=== PATIENT | female | born 2000 | race Asian ===

== ENCOUNTER 2019-11-02 19:50 | Inpatient (IN) | payer OTHER ==
[~2019-11-02] VITALS: Ht 152.4 cm; Wt 43.2 kg
[2019-11-02] MEDS ORDERED: BUPR10TASR PO (20:29)
[2019-11-02] MEDS ORDERED: SERT-141 PO (20:29)
[2019-11-02 21:10] LABS: HEMATOCRIT 43.9 % (36.0-47.0); HEMOGLOBIN 13.9 g/dl (12.0-15.5); MEAN CORPUSCULAR HEMOGLOBIN 30.8 pg (27.0-33.0); MEAN CORPUSCULAR HGB CONC 31.7 g/dl (32.0-36.5); MEAN CORPUSCULAR VOLUME 97.1 fl (80.0-96.0); PLATELET COUNT, AUTOMATED 348 10^3/uL (150-450); RED BLOOD COUNT 4.52 10^6/uL (4.00-5.40); WHITE BLOOD COUNT 8.8 10^3/uL (4.0-10.0)
[2019-11-02 21:34] LABS: AMPHETAMINES LEVEL URINE NEGATIVE (NEGATIVE); BARBITURATES URINE NEGATIVE (NEGATIVE); BENZODIAZEPINES URINE NEGATIVE (NEGATIVE); CANNABINOIDS URINE NEGATIVE (NEGATIVE); COCAINE METABOLITE URINE NEGATIVE (NEGATIVE); METHADONE URINE NEGATIVE (NEGATIVE); OPIATES URINE NEGATIVE (NEGATIVE); PHENCYCLIDINE URINE NEGATIVE (NEGATIVE)
[2019-11-02 21:37] LABS: HCG, SERUM QUALITATIVE NEGATIVE (NEGATIVE)
[2019-11-02 21:47] LABS: ACETAMINOPHEN LEVEL < 2.0 UG/ML (10.0-30.0); ALBUMIN 4.3 GM/DL (3.2-5.2); ALT/SGPT 21 U/L (12-78); BILIRUBIN,DIRECT < 0.1 MG/DL (0.0-0.2); BILIRUBIN,TOTAL 0.2 MG/DL (0.2-1.0); BLOOD UREA NITROGEN 8 MG/DL (7-18); CALCIUM LEVEL 9.1 MG/DL (8.5-10.1); CARBON DIOXIDE LEVEL 27 MEQ/L (21-32); CHLORIDE LEVEL 108 MEQ/L (98-107); CREATININE FOR GFR 0.73 MG/DL (0.55-1.30); ETHYL ALCOHOL (ETHANOL) < 0.003 % (0.000-0.010); GLUCOSE, FASTING 102 MG/DL (70-100); POTASSIUM SERUM 4.3 MEQ/L (3.5-5.1); SALICYLATE LEVEL < 1.7 MG/DL (5.0-30.0); SODIUM LEVEL 141 MEQ/L (136-145); TOTAL PROTEIN 7.4 GM/DL (6.4-8.2)
[2019-11-02] MEDS ORDERED: SERT-138 PO (22:01)
[2019-11-02] MEDS ORDERED: TRI-TAB PO (22:22)
[2019-11-02] MEDS ORDERED: traZODone 50 MG TAB PO PRN (22:30)
[2019-11-02] MEDS ORDERED: MAALOX 30 ML SUSP *UDC PO PRN (22:30)
[2019-11-02] MEDS ORDERED: MOM 30ML SUSPENSION UDC PO PRN (22:30)
[2019-11-02] MEDS ORDERED: ACETAMINOPHEN TAB 650MG DOSE (2X325MG) PO PRN (22:30)
[2019-11-02 23:54] VITALS: BP 134/80
[2019-11-03 06:33] VITALS: BP 124/68
[2019-11-03] MEDS ORDERED: INFLUENZA QUADRIVALENT PF VACCINE 0.5ML SYRINGE (90686) IM ONE (09:00)
--- NOTE | 2019-11-03 12:29 | MHHPE ---
DATE OF ADMISSION: 11/02/2019 CURRENT MEDICATIONS: None. CHIEF COMPLAINT: Suicidal ideation. HISTORY OF PRESENT ILLNESS: This is a 18-year-old female, college student at [employer]. Patient has struggled with depression since age 8. She is having suicidal thoughts of hanging herself. Her appetite is poor. Her weight is stable. Concentration is poor. Motivation is poor. Level of energy is low. She has trouble sleeping at night. She only gets about 2-4 hours sleep at night. She feels tired during the daytime. Self-esteem is low. No history of manias. Patient also has anxiety history. She has history of social phobia. She has trouble with public speaking. She also reports chronic worry and chronic anxiety. Patient was on Zoloft and Wellbutrin for 2-3 months from her primary care physician. She found the medication helpful but discontinued these medications several months ago. Patient does have a therapist through an application called [employer]. Patient states that her family are , and in her culture the men get more positive treatment than the females. She feels that her mother treats her brother more favorably. Patient has tried to overdose three times in the past 10 years by taking pills but has never been hospitalized. PAST PSYCHIATRIC HISTORY: First episode of depression was at age 8. She did see a therapist once at that point in time but was not hospitalized. She has struggled with depression and suicidality ever since. Her school performance suffered during her second semester as a sophomore. She found it hard to get out of bed. She was then started on psychotropics with some benefit, but she discontinued them, as mentioned above. MEDICAL HISTORY: Patient healthy. ALLERGIES: Patient denies. LEGAL HISTORY: None noted. CHEMICAL DEPENDENCY: Patient denies. SOCIAL HISTORY: Patient born and raised in the [place]. She is a high school graduate. She is in her third year of college. She has one younger brother, age 17. He goes to college as well. Relationship with her parents is strained. Patient states that her father has bipolar disorder and is very isolative. She has very little contact with him. She states that her mother has history of depression and is on multiple medications and is "loopy." FAMILY PSYCHIATRIC HISTORY: As above. MENTAL STATUS EXAMINATION: Patient is alert, oriented, and cooperative. Patient is quite small. She is anxious. She appears underweight. Affect is sad. She is flat and blunted. No signs of naty. She does report recent suicidal thoughts. No signs of psychosis. Insight and judgment are fair. Patient is a potential danger to herself. Grooming and hygiene appear good. LENGTH OF STAY: 7-10 days. ASSESSMENT: Patient appears to have a significant history of depression and anxiety and can benefit form inpatient care. DIAGNOSES: 1. Major depression , moderate severity. 2. Social anxiety disorder. 3. Generalized anxiety disorder. PLAN: Admit 9.39. Restart Zoloft and Wellbutrin with trazodone at bedtime for sleep. Involve in hospital milieu. Staff to work on discharge planning and coordination of care with outpatient provider.
[2019-11-03] MEDS: buPROPion (WELLBUTRIN SR) 100 MG SR TAB PO SCH (13:20)
[2019-11-03] MEDS: SERTRALINE HCL 50 MG TAB PO SCH (13:21)
--- NOTE | 2019-11-03 14:59 | HPEPDOC ---
General Date of Admission Nov 02, 2019 at 22:19 Date of Service: Nov 03, 2019 Chief Complaint The patient is a 18-year-old female admitted with a reason for visit of Unspecified Depressive Disorder. Source: Patient Exam Limitations: No limitations Timing/Duration: Intermittent Associated Symptoms: Denies Symptoms History of Present Illness Pt is a 18 year old female admitted to the [facility] for worsening depression and increasing thoughts of suicide. Pt reported that she has attempted suicide in the past. She checked herself into hospital when she noticed her thoughts of suicide were worsening as she identifies the hospital as a safe place. Pt denied any intent to harm herself. Pt denied any new or worsening medical issues at this time. Home Medications Scheduled Bupropion Hcl (Bupropion HCl Sr) 100 Mg Tab.sr.12h, 100 MG PO BID, (Reported) Norgestimate-Ethinyl Estradiol (Tri-Sprintec Tablet) 1 Each Tablet, 1 TAB PO DAILY, (Reported) Sertraline HCl (Sertraline HCl) 100 Mg Tablet, 100 MG PO DAILY, (Reported) Allergies Coded Allergies: No Known Allergies (Unverified , 11/02/19) Past Medical History Medical History Depression Suicidal thoughts anxiety Surgical History Hernia repair x 2 childhood Family History Significant Family History: No pertinent family hx Social History * Smoker: Denies Alcohol: rarely Drugs: denies Recent Travel/Sick Contacts: Denies: Recent travel, Recent sick contacts A-FIB/[facility] A-FIB History Current/History of A-Fib/PAF?: No Current PO Anticoag Therapy: No Review of Systems Constitutional: Denies: Chills, Fever, Night Sweats Eyes: Denies: Pain, Vision change ENT: Denies: Head Aches, Ear Pain, Dysphagia Skin: Denies: Rash, Lesions, Breakdown Pulmonary: Denies: Dyspnea, Cough Cardiovascular: Denies: Chest Pain, Palpitations, Orthopnea, Paroxysmal Noc. Dyspnea, Lt Headedness Gastrointestinal: Denies: Nausea, Vomiting, Abdominal Pain, Diarrhea Genitourinary: Denies: Dysuria, Frequency, Incontinence, Retention Hematologic: Denies: Bruising, Bleeding Excessively Musculoskeletal: Denies: Neck Pain, Back Pain, Joint Pain, Muscle Pain, Spasms Neurological: Denies: Weakness, Numbness, Change in speech, Confusion Psych: Reports: Mood Normal; Denies: Depression, Memory Issues Physical Examination General Exam: Positive: Alert, Cooperative, No Acute Distress Eye Exam: Positive: PERRLA, Conjunctiva & lids normal, EOMI ENT Exam: Positive: Atraumatic, Mucous membr. moist/pink, Pharynx Normal, Tongue Midline Neck Exam: Positive: Supple; Negative: thyromegaly Chest Exam: Positive: Clear to auscultation, Normal air movement Heart Exam: Positive: Rate Normal, Normal S1, Normal S2; Negative: Murmurs, Rubs Abdomen Exam: Positive: Soft; Negative: Tenderness Extremity Exam: Positive: Normal pulses; Negative: Clubbing, Cyanosis, Edema Skin Exam: Positive: Nl turgor and temperature Neuro Exam: Positive: Normal Gait, Normal Speech, Strength at 5/5 X4 ext, Cranial Nerves 3-12 NL Psych Exam: Positive: Mood NL, Oriented x 3 Vital Signs Vital Signs Date Time Temp Pulse Resp B/P (MAP) Pulse Ox O2 Delivery O2 Flow Rate FiO2 11/03/19 06:33 97.3 81 12 124/68 (86) Room Air 11/02/19 19:52 99 Laboratory Data Labs 24H Laboratory Tests 2 11/02/19 20:33: Nucleated Red Blood Cells % (auto) 0.0, Anion Gap 6L, Calcium Level 9.1, Total Bilirubin 0.2, Direct Bilirubin < 0.1, Aspartate Amino Transf (AST/SGOT) 13, Alanine Aminotransferase (ALT/SGPT) 21, Alkaline Phosphatase 46, Total Protein 7.4, Albumin 4.3, Albumin/Globulin Ratio 1.39, Thyroid Stimulating Hormone (TSH) 2.930, Human Chorionic Gonadotropin, Qual NEGATIVE, Salicylates Level < 1.7L, Urine Opiates Screen NEGATIVE, Urine Methadone Screen NEGATIVE, Acetaminophen Level < 2.0L, Urine Barbiturates Screen NEGATIVE, Urine Phencyclidine Screen NEGATIVE, Urine Amphetamines Screen NEGATIVE, Urine Benzodiazepines Screen NEGAT GALLO, Urine Cocaine Metabolite Screen NEGATIVE, Urine Cannabinoids Screen NEGATIVE, Ethyl Alcohol Level < 0.003 CBC/BMP Laboratory Tests 11/02/19 20:33 Assessment/Plan Pt is a 18 year old female admitted to the [facility] for worsening depression and increasing thoughts of suicide. Pt reported that she has attempted suicide in the past. She checked herself into hospital when she noticed her thoughts of suicide were worsening as she identifies the hospital as a safe place. Pt denied any intent to harm herself. Pt denied any new or worsening medical issues at this time. 1. Depression, with thoughts of suicide - management per psychiatry Medicine will sign off at this time. Please re-consult if needed. Plan / VTE VTE Prophylaxis Ordered?: No Attending Note Attending Note I have personally performed a face to face diagnostic evaluation on this patient. I have reviewed and agree with the care plan documented above. DAISHA MERRITT PA-C Nov 03, 2019 14:59 MARLIN JALLOH MD Nov 08, 2019 12:13
[2019-11-03 16:07] VITALS: BP 122/78
[2019-11-03] MEDS: traZODone 50 MG TAB PO SCH (21:50)
[2019-11-04 06:22] VITALS: BP 106/53
[2019-11-04] MEDS: buPROPion (WELLBUTRIN SR) 100 MG SR TAB PO SCH (08:37)
[2019-11-04] MEDS: SERTRALINE HCL 50 MG TAB PO SCH (08:38)
[2019-11-04] MEDS: PARoxetine 10MG TABLET PO SCH (13:05)
--- NOTE | 2019-11-04 14:07 | MHIPN ---
DATE: 11/04/2019 Vital signs: Temperature 99.5, pulse 96, respirations 18, blood pressure 106/53. CURRENT MEDICATIONS: - Zoloft 50 mg every morning - Wellbutrin SR 100 mg every morning - trazodone 50 mg nightly HISTORY OF PRESENT ILLNESS: Patient is still feeling depressed. Anxiety is still quite prominent. Patient is still struggling with chronic suicidal ideation. No new psychosocial stressors. Patient states her family does not know that she is here in the hospital; she prefers that they are not informed, claiming that they make her situation worse. The patient did have severe nausea from her first dose of Zoloft. We discussed switching from Zoloft to another selective serotonin reuptake inhibitor, such as Paxil. She has never been on any other SSRI trials. Side effect profile on Paxil reviewed. She feels comfortable with the Wellbutrin dosage, however. MENTAL STATUS EXAM: Patient is alert, oriented, cooperative. Patient still remains anxious, depressed, with passive suicidal ideation. No signs of naty. She is not psychotic. Insight and judgment are fair. Patient remains a potential danger to herself. Grooming and hygiene are good. DIAGNOSIS: Major depression, moderate severity. Social anxiety disorder. Generalized anxiety disorder. PLAN: Discontinue Zoloft. Patient is going to trial of Paxil 10 mg daily. Encourage involvement in hospital milieu. Patient refuses contact with family at this time.
[2019-11-04 16:16] VITALS: BP 117/76
[2019-11-04] MEDS: LORazepam 0.5 MG TAB PO PRN (21:38)
[2019-11-04] MEDS: traZODone 50 MG TAB PO SCH (21:38)
[2019-11-05 06:03] VITALS: BP 113/58
[2019-11-05] MEDS: buPROPion (WELLBUTRIN SR) 100 MG SR TAB PO SCH (08:22)
[2019-11-05] MEDS: PARoxetine 10MG TABLET PO SCH (08:22)
[2019-11-05 16:37] VITALS: BP 108/58
--- NOTE | 2019-11-05 20:20 | MHIPN ---
DATE: 11/05/2019 VITAL SIGNS: Temperature 98.0, pulse 75, respirations 18, blood pressure 113/58. CURRENT MEDICATIONS: - Wellbutrin SR 100 mg every a.m. - Ativan 0.5 mg every 4 hours as needed - Paxil 10 mg every a.m. - trazodone 50 mg at bedtime (hs) HISTORY OF PRESENT ILLNESS: The patient is worried about the future. She still feels quite depressed. She feels helpless and hopeless. She feels like sleeping all day. She is encouraged to be involved with therapeutic milieu. She still refuses any contact with her family. She has told some coworkers about being here. The patient works with IT at [employer]. The patient has tolerated several doses of Paxil well. She had some mild nausea yesterday, but minimal symptoms today. She is tolerating the Wellbutrin well. We are going to increase the dosage. MENTAL STATUS EXAMINATION: The patient is alert, oriented and cooperative. The patient is still wearing hospital garb. She does have permission to wear street clothes. She still feels quite anxious. She feels moderately to severely depressed. She has passed suicidal thoughts. No current signs of naty. No signs of psychosis. Insight and judgment remains fair. She is in potential danger to herself. Due to the seriousness of her depression, grooming and hygiene remained good. DIAGNOSES: 1. Major depression recurrent, moderate severity. 2. Social anxiety disorder. 4. Generalized anxiety disorder. PLAN: Increase Wellbutrin SR to 150 mg every morning. No change in Paxil. Encourage milieu therapy involvement. Hopefully, patient will allow us to get family input, sooner than later.
[2019-11-05] MEDS: traZODone 50 MG TAB PO SCH (22:35)
[2019-11-06] MEDS: buPROPion **SR TABLET** (ZYBAN) 150MG PO SCH (08:10)
[2019-11-06] MEDS: PARoxetine 10MG TABLET PO SCH (08:10)
[2019-11-06] MEDS ORDERED: diphenhydrAMINE 50 MG CAP PO PRN (10:15)
--- NOTE | 2019-11-06 11:34 | MHIPNPDOC ---
[facility] Progress Note Progress Note DATE OF SERVICE: 11/06/19 VITAL SIGNS: See below. CURRENT MEDICATIONS: - Wellbutrin SR 150 mg every a.m. - Ativan 0.5 mg every 4 hours as needed - Paxil 20 mg every a.m. - Benadryl 50mg at bedtime as needed HISTORY OF PRESENT ILLNESS: The patient says she is not depressed this morning and feels better now that she is wearing her street clothes. She feels "ambivalent about the future" but would still like to start her new job on 11/13/19. She was very anxious yesterday about making a phone call to her friend but is not as anxious this morning. She is encouraged to be involved with therapeutic milieu. She had some mild abdominal pain today. She is tolerating the increased dose of Wellbutrin and has been tolerating the Paxil well. She asked to discontinue the Trazadone because she says she "doesn't feel good on it." We are going to try Benadryl for sleep instead. MENTAL STATUS EXAMINATION: The patient is alert, oriented and cooperative. The patient is wearing her street clothes. She still feels anxious and her affect is appropriate. Patient reports depression is less prominent. Speech is clear, normal rate and rhythm. She had one passive suicidal thought today. No current signs of naty. No signs of psychosis. Insight and judgment remains fair. She is not responding to internal stimuli. She is in potential danger to herself. Grooming and hygiene remained good. DIAGNOSES: 1. Major depression recurrent, moderate severity. 2. Social anxiety disorder. 4. Generalized anxiety disorder. ASSESSMENT: Patient is still anxious today but her depression has improved some. She is still having passive suicidal thoughts and still refusing family contact. She is encouraged to attend groups. We are looking for patient to participate more in social activities. PLAN: Increase Paxil to 20 mg daily. Continue Wellbutrin 150 mg every morning. Discontinue Trazadone 50 mg and start Benadryl 50 mg PRN for sleep. Encouraged to participate in group activities. Still refusing family contact at this time. Vital Signs Vital Signs Date Time Temp Pulse Resp B/P (MAP) Pulse Ox O2 Delivery O2 Flow Rate FiO2 11/05/19 16:37 98.0 92 15 108/58 (75) 11/03/19 06:33 Room Air 11/02/19 19:52 99 Current Medications Current Medications Medications (Trade) Dose Ordered Sig/Dottie Route PRN Reason Start Time Stop Time Status Last Admin Dose Admin Acetaminophen (Tylenol Tab) 650 mg Q6HP PRN PO HEADACHE or DISCOMFORT 11/02/19 22:30 Al Hydrox/Mg Hydrox/Simethicone (Mylanta) 30 ml Q4HP PRN PO HEARTBURN/INDIGESTION 11/02/19 22:30 Bupropion HCl (Wellbutrin Sr) 100 mg QAM PO 11/03/19 12:00 11/05/19 09:16 DC 11/05/19 08:22 Bupropion HCl (Zyban, Wellbutrin Sr) 150 mg QAM PO 11/06/19 09:00 11/06/19 08:10 Diphenhydramine HCl (Benadryl) 50 mg QHSP PRN PO INSOMNIA 11/06/19 10:15 Home Med (Med Rec Complete!) ASDIRECTED XX 11/02/19 22:15 11/02/19 22:04 DC Lorazepam (Ativan) 0.5 mg Q4HP PRN PO Anxiety 11/04/19 21:30 11/04/19 21:38 Magnesium Hydroxide (Milk Of Magnesia) 30 ml DAILYPRN PRN PO CONSTIPATION 11/02/19 22:30 Paroxetine HCl (PAXil) 10 mg DAILY PO 11/04/19 09:00 11/06/19 10:10 DC 11/06/19 08:10 Paroxetine HCl (PAXil) 20 mg DAILY PO 11/07/19 09:00 Sertraline HCl (Zoloft) 50 mg DAILY PO 11/03/19 12:00 11/04/19 12:56 DC 11/03/19 13:21 Trazodone HCl (Desyrel) 50 mg QHS PO 11/03/19 21:00 11/06/19 10:12 DC 11/05/19 22:35 Trazodone HCl (Desyrel) 50 mg QHSP PRN PO INSOMNIA 11/02/19 22:30 11/03/19 11:59 DC Allergies Coded Allergies: No Known Allergies (Unverified , 11/02/19) CHRISTINE LIMA OMS-3 Nov 06, 2019 11:34 KARLA HERNANDEZ MD Nov 06, 2019 11:58
[2019-11-06] MEDS: LORazepam 0.5 MG TAB PO PRN (11:59)
[2019-11-06 15:15] VITALS: BP 112/68
[2019-11-06] MEDS: DOCUSATE SODIUM 100 MG CAP PO SCH (17:08)
[2019-11-07 06:30] VITALS: BP 104/60
[2019-11-07] MEDS: PARoxetine 20 MG TAB PO SCH (08:15)
[2019-11-07] MEDS: buPROPion **SR TABLET** (ZYBAN) 150MG PO SCH (08:15)
[2019-11-07] MEDS: DOCUSATE SODIUM 100 MG CAP PO SCH ×2 (08:15→21:00)
[2019-11-07] MEDS ORDERED: hydrOXYzine 10 MG TAB PO PRN (09:15)
--- NOTE | 2019-11-07 11:43 | MHIPNPDOC ---
[facility] Progress Note Progress Note DATE OF SERVICE: 11/07/19 VITAL SIGNS: See below. CURRENT MEDICATIONS: - Wellbutrin SR 150 mg every a.m. - Hydroxyzine 10 mg as needed - Paxil 20 mg every a.m. - Benadryl 50mg at bedtime as needed HISTORY OF PRESENT ILLNESS: The patient says her depression is not as prominent today. When asked about the future the patient says "anything could happen." Her anxiety is not as prominent this morning but patient says it is "situational and can change throughout the day." She asked to be switched to a different anxiety medication because the Ativan was "making my heart race and I couldn't breathe." We are going to try Hydroxyzine 10 mg. She is attending groups more but is sti ll refusing to have contact with her family. She is tolerating the increased dose of Paxil and is tolerating the Wellbutrin. MENTAL STATUS EXAMINATION: The patient is alert, oriented and cooperative. The patient is wearing her street clothes. She feels less anxious this morning and her affect is appropriate. Patient reports depression is less prominent. Speech is clear, normal rate and rhythm. She denies any suicidal ideation today. No current signs of naty. No signs of psychosis. Insight and judgment remains fair. She is not responding to internal stimuli. She is in potential danger to herself. Grooming and hygiene remained good. DIAGNOSES: 1. Major depression recurrent, moderate severity. 2. Social anxiety disorder. 4. Generalized anxiety disorder. ASSESSMENT: Patient is less anxious and depressed today but is still guarded. She is still refusing family contact and any visitors. She is encouraged to attend groups. We are looking for patient to participate more in social a ctivities. PLAN: Increase -Continue Paxil to 20 mg daily -Continue Wellbutrin 150 mg every morning -Discontinue Ativan, Start Hydroxyzine 10 mg as needed for anxiety. -Benadryl 50 mg PRN for sleep Encouraged to participate in group activities. We would like to speak with her family or friends to figure out her baseline but she is refusing family contact and visitors. Vital Signs Vital Signs Date Time Temp Pulse Resp B/P (MAP) Pulse Ox O2 Delivery O2 Flow Rate FiO2 11/07/19 06:30 99.1 102 16 104/60 (75) Room Air 11/02/19 19:52 99 Current Medications Current Medications Medications (Trade) Dose Ordered Sig/Dottie Route PRN Reason Start Time Stop Time Status Last Admin Dose Admin Acetaminophen (Tylenol Tab) 650 mg Q6HP PRN PO HEADACHE or DISCOMFORT 11/02/19 22:30 Al Hydrox/Mg Hydrox/Simethicone (Mylanta) 30 ml Q4HP PRN PO HEARTBURN/INDIGESTION 11/02/19 22:30 Bupropion HCl (Wellbutrin Sr) 100 mg QAM PO 11/03/19 12:00 11/05/19 09:16 DC 11/05/19 08:22 Bupropion HCl (Zyban, Wellbutrin Sr) 150 mg QAM PO 11/06/19 09:00 11/07/19 08:15 Diphenhydramine HCl (Benadryl) 50 mg QHSP PRN PO INSOMNIA 11/06/19 10:15 Docusate Sodium (Colace) 100 mg BID PO 11/06/19 15:45 11/07/19 08:15 Home Med (Med Rec Complete!) ASDIRECTED XX 11/02/19 22:15 11/02/19 22:04 DC Hydroxyzine HCl (Atarax) 10 mg Q4HP PRN PO ANXIETY/AGITATION 11/07/19 09:15 Lorazepam (Ativan) 0.5 mg Q4HP PRN PO Anxiety 11/04/19 21:30 11/07/19 09:09 DC 11/06/19 11:59 Magnesium Hydroxide (Milk Of Magnesia) 30 ml DAILYPRN PRN PO CONSTIPATION 11/02/19 22:30 Paroxetine HCl (PAXil) 10 mg DAILY PO 11/04/19 09:00 11/06/19 10:10 DC 11/06/19 08:10 Paroxetine HCl (PAXil) 20 mg DAILY PO 11/07/19 09:00 11/07/19 08:15 Sertraline HCl (Zoloft) 50 mg DAILY PO 11/03/19 12:00 11/04/19 12:56 DC 11/03/19 13:21 Trazodone HCl (Desyrel) 50 mg QHS PO 11/03/19 21:00 11/06/19 10:12 DC 11/05/19 22:35 Trazodone HCl (Desyrel) 50 mg QHSP PRN PO INSOMNIA 11/02/19 22:30 11/03/19 11:59 DC Allergies Coded Allergies: No Known Allergies (Unverified , 11/02/19) CHRISTINE LIMA OMS-3 Nov 07, 2019 11:42
[2019-11-07 17:32] VITALS: BP 118/69
[2019-11-08 06:43] VITALS: BP 124/72
[2019-11-08] MEDS: PARoxetine 20 MG TAB PO SCH (08:16)
[2019-11-08] MEDS: DOCUSATE SODIUM 100 MG CAP PO SCH ×2 (08:16→20:32)
[2019-11-08] MEDS: buPROPion **SR TABLET** (ZYBAN) 150MG PO SCH (08:16)
[2019-11-08 15:29] VITALS: BP 124/80
--- NOTE | 2019-11-08 19:32 | MHIPN ---
DATE OF SERVICE: 11/08/2019 VITAL SIGNS: Temperature 98.1, pulse 100, respirations 12, blood pressure 124/72. CURRENT MEDICATIONS: - Paxil 20 mg in the morning - Wellbutrin SR 150 mg in the morning - Colace 100 mg twice a day - Atarax 10 mg every 4 hours as needed HISTORY OF PRESENT ILLNESS: The patient states that her mood is not as depressed. She feels more positive about the future. She is more hopeful. Usually she has trouble getting out of bed in the morning, she is never a morning person. She was pleasantly surprised that she woke up early this morning and was out of bed early full of energy and looking forward to the day. The patient is reading a book. She states that her concentration is reasonably good. She is having a friend visit later today, this is a coworker that she trusts. The patient still refuses to have any contact with her family and will not sign a release of information. The patient is starting to attend the milieu therapy program. She denies side effects with the psychotropics. She has not required any as needed Atarax. MENTAL STATUS EXAMINATION: The patient is alert, oriented and cooperative. Patient is wearing street clothes. Affect is more appropriate, better eye contact. She is somewhat more verbal. Affect is brighter. No suicidal ideation noted. She is still quite superficial. The patient is not psychotic. Insight and judgment appear somewhat improved. No signs of cognitive deficits. DIAGNOSES: 1. Major depression, recurrent. 2. Social anxiety disorder. 3. Generalized anxiety disorder. PLAN: Continue present management. Staff to work on discharge planning and coordinating care with appropriate outpatient providers.
[2019-11-09 06:22] VITALS: BP 112/55
[2019-11-09] MEDS: PARoxetine 20 MG TAB PO SCH (08:31)
[2019-11-09] MEDS: DOCUSATE SODIUM 100 MG CAP PO SCH ×2 (08:31→21:00)
[2019-11-09] MEDS: buPROPion **SR TABLET** (ZYBAN) 150MG PO SCH (08:31)
[2019-11-09 18:00] VITALS: BP 118/76
[2019-11-10 06:35] VITALS: BP 112/73
[2019-11-10] MEDS: buPROPion **SR TABLET** (ZYBAN) 150MG PO SCH (08:03)
[2019-11-10] MEDS: DOCUSATE SODIUM 100 MG CAP PO SCH (08:03)
[2019-11-10] MEDS: PARoxetine 20 MG TAB PO SCH (08:03)
[2019-11-10] MEDS ORDERED: BUPR10TASR PO (09:22)
[2019-11-10] MEDS ORDERED: PARO20TA3 PO (09:22)
[2019-11-10] MEDS ORDERED: HYDR-643 PO (09:22)
--- NOTE | 2019-11-10 09:42 | MHDSPDOC ---
[facility] Discharge Summary Discharge Summary DATE OF ADMISSION: Nov 02, 2019 at 10:19 pm DATE OF DISCHARGE: Nov 10, 2019 DISCHARGE DIAGNOSES: 1. Major depression , moderate severity. 2. Social anxiety disorder. 3. Generalized anxiety disorder. REASON FOR ADMISSION: This is a 18-year-old female, college student at [employer]. Patient has struggled with depression since age 8. She is having suicidal thoughts of hanging herself. Her appetite is poor. Her weight is stable. Concentration is poor. Motivation is poor. Level of energy is low. She has trouble sleeping at night. She only gets about 2-4 hours sleep at night. She feels tired during the daytime. Self-esteem is low. No history of manias. Patient also has anxiety history. She has history of social phobia. She has trouble with public speaking. She also reports chronic worry and chronic anxiety. Patient was on Zoloft and Wellbutrin for 2-3 months from her primary care physician. She found the medication helpful but discontinued these medications several months ago. Patient does have a therapist through an application called [employer]. Patient states that her family are , and in her culture the men get more positive treatment than the females. She feels that her mother treats her brother more favorably. Patient has tried to overdose three times in the past 10 years by taking pills but has never been hospitalized. CONSULTANTS INVOLVED: none TREATMENT AND PROGRESS ON THE UNIT : Pt was admitted to [facility], seen for psychiatric assessment and started on paxil 20mg daily and wellbutrin SR 100mg bid for mood. She was provided vistaril 10mg q4hr prn anxiety and trazodone 50mg qhs prn insomnia. Pt found her medications beneficial and tolerated them well. She attended groups daily during her stay. Her symptoms improved with treatment. On day of discharge she denied depression, anxiety, insomnia, SI/HI, hallucinations, delusions. She was discharged home with follow-up at [facility]. She felt safe for discharge. DISCHARGE ASSESSMENT: :Pt seen and states that her mood is better and that she's looking forward to going home today. States she slept well last night. Feels she is tolerating her medications and they're beneficial. She is attending groups and finding them helpful. She denies depression, anxiety, insomnia, SI/HI, hallucinations, delusions. Pt's aunt was contacted for collateral in formation by d/c operations planner for safety prior d/c. Pt feels safe to d/c home today. MENTAL STATUS EXAMINATION ON DISCHARGE: Patient is alert, oriented, and cooperative. Patient is quite small. She is anxious. She appears underweight. Affect is sad. She is flat and blunted. No signs of naty. She does report recent suicidal thoughts. No signs of psychosis. Insight and judgment are fair. Patient is a potential danger to herself. Grooming and hygiene appear good. MEDICATIONS ON DISCHARGE: paxil 20mg daily wellbutrin SR 100mg bid vistaril 10mg tid prn anxiety trazodone 50mg qhs prn insomnia PLAN/FOLLOWUP ARRANGEMENTS: [facility] The amount of time spent in the coordination of care for this patient was approximately 30 minutes. Vital Signs/I&Os Vital Signs Date Time Temp Pulse Resp B/P (MAP) Pulse Ox O2 Delivery O2 Flow Rate FiO2 11/10/19 06:35 98.8 90 12 112/73 (86) Room Air Medications Scheduled Bupropion Hcl (Bupropion HCl Sr) 100 Mg Tab.sr.12h, 100 MG PO BID for mood, #20 Norgestimate-Ethinyl Estradiol (Tri-Sprintec Tablet) 1 Each Tablet, 1 TAB PO DAILY, (Reported) Paroxetine HCl (Paroxetine HCl) 20 Mg Tablet, 20 MG PO DAILY for mood, #10 Scheduled PRN Hydroxyzine HCl (Hydroxyzine HCl) 10 Mg Tablet, 10 MG PO TIDP PRN for ANXIETY/AGITATION, #30 Allergies Coded Allergies: No Known Allergies (Unverified , 11/02/19) FLORENTINO SMITH DO Nov 10, 2019 9:25 am
== END 2019-11-10 16:00 | disposition home or self-care (01) | DRG 885 ==
LOC: M ED 19:50 → M ED INP 22:19 → M PSY 23:15
PROVIDERS: ADMIT Psychiatry & Neurology Psychiatry; ATTEND Psychiatry & Neurology Psychiatry
DX: F33.1 Major depressive disorder, recurrent, moderate (principal); F41.1 Generalized anxiety disorder; F40.10 Social phobia, unspecified; Z79.899 Other long term (current) drug therapy